=== PATIENT | female | born 1940 | race Hispanic/Latino ===

== ENCOUNTER 2022-05-08 14:41 | Emergency (ER) | payer MEDICARE, OTHER ==
[~2022-05-08] VITALS: Ht 152.4 cm; Wt 57.2 kg
[2022-05-08 14:43] VITALS: BP 133/52
[2022-05-08] MEDS ORDERED: LEVO50CA4 PO (14:49)
[2022-05-08] MEDS ORDERED: OLME40TA18 PO (14:49)
[2022-05-08] MEDS ORDERED: ACETAMINOPHEN 500 MG TABLET PO ONE (15:30)
[2022-05-08] MEDS ORDERED: ACET-66 PO (16:15)
== END 2022-05-08 17:07 | disposition home or self-care (01) ==
LOC: EDH 14:41
DX: M25.562 Pain in left knee (principal); E03.9 Hypothyroidism, unspecified; Z79.899 Other long term (current) drug therapy
CPT/HCPCS: 73562